=== PATIENT | female | born 2000 | race African-American/Black ===

== ENCOUNTER 2022-08-10 03:59 | Emergency (ER) | payer OTHER ==
[2022-08-10 04:14] VITALS: BP 134/73; PULSE 98; RESP 18; BMI 26.6
[2022-08-10] MEDS ORDERED: ACETAMINOPHEN 325 MG TABLET (FP) ONE (05:21)
[2022-08-10] MEDS ORDERED: ACETAMINOPHEN 325 MG TABLET (FP) PO ONE (05:42)
== END 2022-08-10 06:32 | disposition home or self-care (01) ==
LOC: JER 03:59
DX: R53.1 Weakness (principal)
CPT/HCPCS: 82962; 84703; 93005; 93010; 99284-25

== ENCOUNTER 2022-09-16 15:11 | Emergency (ER) | payer OTHER ==
[2022-09-16 15:34] VITALS: BP 126/76; PULSE 72; RESP 18; TEMP 98.3; BMI 27.1
[2022-09-16] MEDS ORDERED: ACETAMINOPHEN 1000 MG/100 ML BAG IVPB ONE (17:13)
[2022-09-16] MEDS ORDERED: ACETAMINOPHEN INJECTION 100 ML IVPB ONE (17:20)
[2022-09-16 18:01] LABS: BASO % 0.3 % (0-2.0); EOS % 0.5 % (0-4.5); HEMATOCRIT 38.8 % (32.4-45.2); HEMOGLOBIN 12.8 GM/dL (10.7-15.3); LYMPH % 16.8 % (8-40); MCH 30.4 pg (25.7-33.7); MEAN CELL VOLUME 92.1 fl (80-96); MONO % 6.2 % (3.8-10.2); NEUT % 76.2 % (42.8-82.8); PLATELET COUNT 317 10^3/uL (134-434); RBC 4.21 M/mm3 (3.60-5.2); RDW 12.5 % (11.6-15.6); WHITE BLOOD COUNT 10.2 K/mm3 (4.0-10.0)
[2022-09-16 18:02] LABS: URINE APPEARANCE CLEAR; URINE BILIRUBIN NEGATIVE (NEGATIVE); URINE COLOR YELLOW; URINE GLUCOSE (UA) NEGATIVE (NEGATIVE); URINE KETONE NEGATIVE (NEGATIVE); URINE LEUK ESTERASE NEGATIVE (NEGATIVE); URINE NITRITE NEGATIVE (NEGATIVE); URINE PROTEIN NEGATIVE (NEGATIVE); URINE UROBILINOGEN 0.2 mg/dL (0.2-1.0)
[2022-09-16 18:09] LABS: INR 1.12 (0.83-1.09); PROTHROMBIN TIME (PATIENT) 12.9 SEC (9.7-13.0)
[2022-09-16 18:12] LABS: ACTIVATED PTT 30.5 SECONDS (25.2-36.5)
[2022-09-16 18:30] LABS: CALCIUM 9.2 mg/dL (8.5-10.1)
[2022-09-16 18:31] LABS: ALBUMIN 3.7 g/dl (3.4-5.0); BLOOD UREA NITROGEN 8.4 mg/dL (7-18)
[2022-09-16 18:34] LABS: CREATININE 0.7 mg/dL (0.55-1.3)
[2022-09-16 18:35] LABS: BILIRUBIN,TOTAL 0.3 mg/dL (0.2-1); TOT PROT 8.1 g/dl (6.4-8.2)
[2022-09-16 19:12] LABS: HCG,QUALITATIVE URINE Negative
== END 2022-09-16 23:25 | disposition home or self-care (01) ==
LOC: JER 15:11
PROC: 3E033GC Introduction of Other Therapeutic Substance into Peripheral Vein, Percutaneous Approach (ICD-10-PCS; principal; 2022-09-16)
DX: N83.201 Unspecified ovarian cyst, right side (principal)
CPT/HCPCS: 36415; 74177-TC; 76705-TC; 76830-TC; 80053; 81003; 84703; 85025; 85610; 85730; 86850; 86900; 86901; 87086; 99285-25

== ENCOUNTER 2025-04-03 08:48 | Emergency (ER) | payer OTHER ==
[2025-04-03 08:54] VITALS: BP 136/72; PULSE 76; RESP 15; TEMP 97.8; BMI 27.1
[2025-04-03] MEDS ORDERED: KETOROLAC TROMETHAMINE 30 MG/1 ML VIAL ONE (09:12)
[2025-04-03] MEDS ORDERED: LIDOCAINE 4% PATCH TP ONE (09:12)
[2025-04-03] MEDS ORDERED: ACETAMINOPHEN 325 MG TABLET (FP) ONE ×2 (09:12→09:14)
[2025-04-03] MEDS ORDERED: METHOCARBAMOL 500 MG TABLET ONE (09:12)
[2025-04-03] MEDS: METHOCARBAMOL 750 MG TAB PO ONE (09:39)
[2025-04-03] MEDS: KETOROLAC TROMETHAMINE 30 MG/1 ML VIAL IM ONE (09:39)
[2025-04-03] MEDS: ACETAMINOPHEN 325 MG TABLET (FP) PO ONE (09:40)
[2025-04-03] MEDS: LIDOCAINE 5% TOPICAL PATCH TP ONE (09:41)
[2025-04-03] MEDS ORDERED: LIDOCAINE PATCH REMOVAL MC SCH (22:00)
== END 2025-04-03 09:53 | disposition home or self-care (01) ==
LOC: JERFT 08:48
PROC: 3E0233Z Introduction of Anti-inflammatory into Muscle, Percutaneous Approach (ICD-10-PCS; principal; 2025-04-03)
DX: M62.838 Other muscle spasm (principal); M54.2 Cervicalgia; X50.1XXA Overexertion from prolonged static or awkward postures, initial encounter
CPT/HCPCS: 96372; 99284-25